=== PATIENT | female | born 2000 | race Caucasian/White ===

== ENCOUNTER 2022-06-12 09:19 | Emergency (ER) | payer MEDICAID, OTHER ==
[~2022-06-12] VITALS: Ht 152.4 cm; Wt 82.6 kg
[2022-06-12 09:25] VITALS: BP_SYST 127
[2022-06-12] MEDS ORDERED: LIDO1ADH22 TP (09:55)
[2022-06-12] MEDS ORDERED: LIDOCAINE PATCH 5% 1 EA TP ONE (10:00)
[2022-06-12 10:59] VITALS: BP_SYST 118
== END 2022-06-12 10:50 | disposition home or self-care (01) ==
LOC: SED 09:19
DX: R07.89 Other chest pain (principal); R06.02 Shortness of breath; Z79.899 Other long term (current) drug therapy
CPT/HCPCS: 93005; 99283